=== PATIENT | male | born 2000 | race Caucasian/White ===

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

== ENCOUNTER 2022-05-01 12:27 | Emergency (ER) | payer OTHER ==
[2022-05-01 12:41] VITALS: BP 144/74; PULSE 98
[2022-05-01] MEDS ORDERED: predniSONE 10 MG Tab PO ONE (13:14)
== END 2022-05-01 13:41 | disposition home or self-care (01) ==
LOC: JD.ED 12:27
DX: S90.861A Insect bite (nonvenomous), right foot, initial encounter (principal); W57.XXXA Bitten or stung by nonvenomous insect and other nonvenomous arthropods, initial encounter
CPT/HCPCS: 99282